=== PATIENT | male | born 1955 | race Caucasian/White ===

== ENCOUNTER → 2024-07-10 | Outpatient (CLI) | payer BC, SELFPAY ==
[2024-07-10 09:23] LABS: Blood Urea Nitrogen 16 mg/dL (9-23); Creatinine (Component) 0.9 mg/dL (0.6-1.3); eGFR > 60 See Note
== END | disposition home or self-care (01) ==
LOC: COPL 07:21
PROVIDERS: PCP Internal Medicine Cardiovascular Disease; Referring Provider Student in an Organized Health Care Education/Training Program; Visit Provider Student in an Organized Health Care Education/Training Program
DX: I71.43 Infrarenal abdominal aortic aneurysm, without rupture (principal)
CPT/HCPCS: 36415; 82565; 84520

== ENCOUNTER → 2024-07-13 | Outpatient (CLI) | payer BC, SELFPAY ==
--- NOTE | 2024-07-13 11:30 | XR_ITS ---
Examination: CTA abdomen, with intravenous contrast. CTA pelvis, with intravenous contrast. 2-D sagittal and coronal reconstructions. 3-D reconstructions. Date and time of exam: July 13, 2024 1128 hours Comparison January 04, 2024 INDICATIONS: Diagnosis abdominal aortic aneurysm post aortoiliac stent placement 8 months ago CTDI vol (mgy) 19.2 DLP (MGycm) 497 Technique: Multiple CTA images, 2.0 mm slice thickness, obtained abdomen, pelvis, with the high-resolution 64 slice scanner. 2-D sagittal coronal reconstructions 3-D reconstructions 3-D postprocessing Low dose protocols, automated exposure control, adjustment MA KV according to patient size FINDINGS: Small liver cysts No gallstones No pancreatic or adrenal mass Upper pole 6 cm right renal cyst Status post aortoiliac stent which is patent Infrarenal abdominal aortic aneurysm AP dimension 5.1 cm mediolateral dimension 5.6 cm compared to 5.5 cm 5.[address] abdomen pelvis January 04, 2024 Normal appendix No free blood in the abdomen There is no narrowing left common iliac stent axial image 155, estimated 40% IMPRESSION: Status post aorto iliac endoluminal stent which is patent Transverse dimensions abdominal aortic aneurysm AP dimension 5.1 cm mediolateral dimension 5.6 cm compared to 5.5 cm, 5.[address] abdomen pelvis January 04, 2024
== END | disposition home or self-care (01) ==
LOC: CCTX 11:14
PROVIDERS: Referring Provider Student in an Organized Health Care Education/Training Program; Visit Provider Student in an Organized Health Care Education/Training Program
DX: I71.40 Abdominal aortic aneurysm, without rupture, unspecified (principal)
CPT/HCPCS: 74174; A4649; Q9967

== ENCOUNTER 2024-12-27 06:31 | Day surgery (SDC) | payer BC, SELFPAY ==
--- NOTE | 2024-12-26 07:00 | EKG_ITS ---
[facility] Test Date: 2024-12-26 Pat Name: AMINA BRIONES Department: Room: - Gender: Male Community Midwife: MELISSA : 1955 Requested By: Shawn Gonzalez Order Number: [id number] Reading MD: Shawn Gonzalez Measurements Intervals [place] Rate: 65 P: 40 MI: 190 QRS: 63 QRSD: 95 T: 78 QT: 407 QTc: 424 Interpretive Statements SINUS RHYTHM Compared to ECG 12/07/2023 07:57:09 No significant changes /store/S0/[id number]
[2024-12-26 08:57] LABS: Basophils # (Auto) 0.0 Thou/mm3 (0.0-0.2); Basophils % (Auto) 1 % (0-2.5); Eosinophils # (Auto) 0.1 Thou/mm3 (0.0-0.5); Eosinophils % (Auto) 2 % (0-10); Hematocrit 46.5 % (41.0-53.0); Hemoglobin 15.8 g/dL (13.5-16.0); Immature Granulocytes Auto 0.08 Thou/mm3 (0.00-0.00); Lymphocytes # (Auto) 1.2 Thou/mm3 (1.0-4.8); Lymphocytes % (Auto) 16 % (10-50); Mean Corpuscular HGB Conc 34.0 g/dl (31.0-37.0); Mean Corpuscular Hemoglobin 31.6 pg (25.0-35.0); Mean Corpuscular Volume 93 fL (80-100); Monocytes # (Auto) 0.6 Thou/mm3 (0.0-0.8); Monocytes % (Auto) 8 % (0-12); Neutrophils # (Auto) 5.4 Thou/mm3 (1.8-7.7); Neutrophils % (Auto) 73 % (37-80); Nucleated Red Blood Cell # 0.00 Thou/mm3 (0.00-0.00); Nucleated Red Blood Cell % 0 /100 WBC (0); Platelet Count 186 Thou/mm3 (140-440); RDW Standard Deviation 46.5 fL (35.1-43.9); Red Blood Count 5.00 Miln/mm3 (4.50-5.90); White Blood Count 7.4 Thou/mm3 (3.8-10.6)
[2024-12-26 08:58] LABS: Anion Gap 8 (7-16); BUN/Creatinine Ratio 16 Ratio (12-20); Blood Urea Nitrogen 16 mg/dL (9-23); Calcium 10.1 mg/dL (8.3-10.6); Carbon Dioxide 29.0 mMol/L (20.0-31.0); Chloride 104 mMol/L (98-107); Creatinine (Component) 1.0 mg/dL (0.6-1.3); Glucose 113 mg/dL (74-106); Osmolality,Calculated 283 (275-295); Potassium 4.4 mMol/L (3.4-5.1); Sodium 141 mMol/L (136-145); eGFR > 60 See Note
[2024-12-26 09:17] LABS: INR 1.0 (0.9-1.3); Partial Thromboplastin Time 26.2 Seconds (22.0-36.0); Prothrombin Time 11.3 Seconds (9.0-12.2)
[2024-12-27] VITALS (17 sets, daily range): BP systolic 115–146; BP diastolic 73–89; PULSE 60–72; RESP 13–21; TEMP 36.2–36.6; O2SAT 96–100; BMI 24.8
--- NOTE | 2024-12-27 09:30 | ESOP_ITS ---
RE: AMINA BRIONES : 1955 DATE OF OPERATION: 12/27/2024 PROCEDURES PERFORMED: 1. Diagnostic left heart cardiac catheterization, selective coronary angiogram, and vein bypass graft angiogram (CPT 13315). 2. Selective cannulation of the left internal mammary artery, LAD angiogram (CPT 18882). 3. Abdominal flush angiogram. 4. Iliofemoral angiogram. 5. Conscious sedation for 30-minute duration. 6. Ultrasound-guided access of the right femoral artery. DIAGNOSES: 1. Coronary artery disease, status post coronary artery bypass graft surgery and stent placement. 2. Abdominal aortic aneurysm, stent graft placement. 3. Abnormal nuclear stress test. HISTORY AND INDICATIONS: The patient is a 69-year-old male with known CAD, status post bypass graft surgery x3, CAD stent placement, and abdominal aortic stent graft placement. He has had shortness of breath with exertion. A nuclear scan showed inferoapical ischemia. Hence, a coronary angiogram was recommended to assess the patient is a candidate for intervention and revascularization. DESCRIPTION OF PROCEDURE: The patient was brought to the cardiac catheterization laboratory where he was given 2 mg Versed and 50 mcg of fentanyl for sedation. The right femoral artery was cannulated by micropuncture technique, and ultrasound guidance was used. A 5-Finnish sheath was introduced. A 5-Finnish FR4 diagnostic catheter was used to perform a left heart catheterization, left ventricular angiogram, right coronary angiogram, as well as right coronary artery bypass graft angiogram. A 5-Finnish JL4 diagnostic catheter was used to perform a left coronary angiogram. Subsequently, a left internal mammary artery angiogram was performed. It was selectively cannulated using an FR4 diagnostic catheter. An LCB diagnostic catheter was used to perform a left circumflex angiogram. Subsequently, flush angiogram of the abdominal aorta was performed. An iliofemoral angiogram was performed. The patient tolerated the procedure well. There were no complications. The cardiac catheterization showed the following findings. HEMODYNAMICS: Left ventricular pressure 120/10, aortic pressure 120/75. No gradient across the aortic valve. Left ventricular angiogram showed normal left ventricular wall motion. Ejection fraction was 55-60%. Coronary angiogram showed the following findings. [place] right coronary artery was shortly occluded, close to its origin. Vein graft to the right coronary artery is widely patent. There is some disease in the proximal to mid segment, not significant. Left coronary system: Left main coronary artery showed mild disease and calcification. Left anterior descending artery is totally occluded in the proximal and mid segments. [place] to LAD widely patent. Left circumflex artery: The [place] circumflex artery showed a stent in the mid segment, which is widely patent. Vein graft to the large obtuse margin is widely patent. Abdominal angiogram showed evidence of a normal-appearing stent graft in the abdominal aorta. Endovascular stent graft is patent. No obvious leaks were visualized. Iliofemoral angiogram showed normal femoral artery. Site of cannulation is too close to the bifurcation. Hence, manual compression applied. SUMMARY OF FINDINGS AND SUGGESTIONS: 1. Severe multivessel coronary artery disease with all bypass grafts patent, including [place] to LAD and vein grafts to the circumflex and right coronary artery. 2. Widely patent stent in the circumflex artery. 3. Normal-looking abdominal aortic stent graft. 4. Normal left ventricular function. RECOMMENDATIONS: The patient was reassured about the negative findings. We recommended to continue aspirin daily. Prognosis is excellent. We will continue to monitor low fat, low cholesterol diet. Keep the LDL cholesterol below 50. DT: 08:09:03 TT: 09:19:00 Ref: [id number] - TID: [id number] [facility] NETWORKHailee
== END 2024-12-27 12:05 | disposition home or self-care (01) ==
PROVIDERS: PCP Family Medicine; Referring Provider Internal Medicine Cardiovascular Disease; Visit Provider Internal Medicine Cardiovascular Disease
PROC: (CPT 93459; principal; 2024-12-27 07:30)
DX: I25.118 Atherosclerotic heart disease of native coronary artery with other forms of angina pectoris (principal); E78.00 Pure hypercholesterolemia, unspecified; Z01.810 Encounter for preprocedural cardiovascular examination; Z95.5 Presence of coronary angioplasty implant and graft; I11.9 Hypertensive heart disease without heart failure; Z95.1 Presence of aortocoronary bypass graft; I71.40 Abdominal aortic aneurysm, without rupture, unspecified; Z79.02 Long term (current) use of antithrombotics/antiplatelets; Z79.899 Other long term (current) drug therapy; Z79.82 Long term (current) use of aspirin
CPT/HCPCS: 93459; G0278; 36415; 75625; 80048; 85025; 85610; 85730; 93005; 99152; 99153; A4649; C1725; C1769; C1894; J0168; J0461; J1643; J2250; J2312; J2371; J3010; J3490; Q9967